=== PATIENT | female | born 1975 | race Caucasian/White ===

== ENCOUNTER → 2016-10-11 | Outpatient (CLI) | payer MEDICARE ==
[~2016-10-11] MED LIST: ADDERALL XR 3030 MG PO; COLACE 100MG C100 MG PO; ESTRADIOL0.5 MG PO; IBUPROFEN600 MG PO; MULTI FOR HER1 EACH PO; NORCO 10-325 T1 EACH PO
[2016-10-11 09:43] LABS: HEMOGLOBIN 13.6 gm/dl (12.3-15.3); RED BLOOD COUNT 4.79 M/UL (4.00-5.10)
== END ==
LOC: OPSV2 09:00
PROVIDERS: Obstetrics & Gynecology
DX: Z01.812 Encounter for preprocedural laboratory examination (principal); R10.2 Pelvic and perineal pain
CPT/HCPCS: 36415; 81001; 85025

== ENCOUNTER 2016-10-18 06:16 | Day surgery (SDC) | payer MEDICARE ==
[~2016-10-18] VITALS: Ht 170.2 cm; Wt 77.1 kg
[2016-10-18] MEDS ORDERED: MULTI FOR HER1 EACH PO (06:46)
[2016-10-18] MEDS ORDERED: ADDERALL XR 3030 MG PO (06:46)
[2016-10-19 05:54] LABS: HEMOGLOBIN 12.6 gm/dl (12.3-15.3)
[2016-10-19] MEDS ORDERED: IBUPROFEN600 MG PO (09:26)
[2016-10-19] MEDS ORDERED: NORCO 10-325 T1 EACH PO (09:27)
[2016-10-19] MEDS ORDERED: COLACE 100MG C100 MG PO (09:28)
[2016-10-19] MEDS ORDERED: ESTRADIOL0.5 MG PO (09:28)
== END 2016-10-19 10:57 | disposition home or self-care (01) ==
LOC: OR 06:16 → M/S 11:34 → ZEROF 13:48 → OR 13:48 → M/S 10-19 10:57 → OR 10-19 10:57
PROVIDERS: Obstetrics & Gynecology
PROC: 0UTC4ZZ Resection of Cervix, Percutaneous Endoscopic Approach (ICD-10-PCS; 2016-10-18)
PROC: 0UT24ZZ Resection of Bilateral Ovaries, Percutaneous Endoscopic Approach (ICD-10-PCS; 2016-10-18)
PROC: 0UT54ZZ Resection of Right Fallopian Tube, Percutaneous Endoscopic Approach (ICD-10-PCS; 2016-10-18)
PROC: 0UT94ZZ Resection of Uterus, Percutaneous Endoscopic Approach (ICD-10-PCS; principal; 2016-10-18 08:50)
DX: N87.9 Dysplasia of cervix uteri, unspecified (principal); N83.201 Unspecified ovarian cyst, right side; N83.202 Unspecified ovarian cyst, left side; M19.90 Unspecified osteoarthritis, unspecified site; F17.210 Nicotine dependence, cigarettes, uncomplicated; Z79.891 Long term (current) use of opiate analgesic; Z79.899 Other long term (current) drug therapy; Z98.51 Tubal ligation status; Z87.440 Personal history of urinary (tract) infections
CPT/HCPCS: 85014; 85018; J0690; J1100; J1885; J2250; J2270; J2405; J2550; J2710; J2795; J3010; J7120